=== PATIENT | male | born 1985 | race African-American/Black ===

== ENCOUNTER 2020-01-20 11:56 | Emergency (ER) | payer OTHER, SELFPAY ==
[2020-01-20 12:08] VITALS: PULSE 75; RESP 20; TEMP 36.7; O2SAT 100; BMI 36.9
--- NOTE | 2020-01-20 12:48 | ED_ITS ---
HPI - General Adult General Chief complaint: General Medical Stated complaint: BODY ACHE INJURY Time Seen by Provider: 01/20/20 12:15 Source: patient Mode of arrival: ambulatory History of Present Illness HPI narrative: 34-year-old male deaf male with no significant past medical history complaining of diffuse body myalgias in UE and LE since yesterday s/p caring heavy objects at work. Reports job is very physical. Has been taking Tylenol at home without relief. Reports intermittently works out, however has been more than normal. Denies numbness, tingling, weakness, incontinence / retention, dysuria, dark urine Onset (ago): day(s) Related Data Previous Rx's Medication Instructions Recorded acetaminophen [Tylenol Extra 500 mg PO Q6H PRN #20 tab 01/20/20 Strength] cyclobenzaprine 5 mg PO Q8H PRN 5 Days #14 tab 01/20/20 lidocaine [Lidoderm] 1 patch TOPICAL DAILY PRN #30 ea 01/20/20 MDD remove after 12 hours Allergies Allergy/AdvReac Type Severity Reaction Status Date / Time NSAIDS (Non-Steroidal Allergy Mild HIVES Verified 01/20/20 12:06 Anti-Inflamma [NSAIDS (NON-STEROIDAL ANTI-INFLAMMA] ibuprofen [IBUPROFEN] Allergy Unknown UNKNOWN Verified 01/20/20 12:06 wasps Allergy Anaphylaxis Uncoded 01/20/20 12:07 Review of Systems Review of Systems: Constitutional: No Weight loss, No Fever, No Chills Cardiovascular: No Chest Pain, No SOB Respiratory: No Cough, No Sputum, No Wheezing Gastrointestinal: No Nausea, No Vomiting, No Diarrhea Genitourinary:, No Dysuria, No Hematuria, No Urinary Incontinence Musculoskeletal: + joint pain, + Myalgias, No Joint Swelling Skin: No Skin Lesions, No rash Yes all other systems are reviewed and are negat [facility] Past Medical History Attestation statement: The following information was validated with the patient. Medical History (Updated 01/20/20 @ 15:03 by RAINER Alexander) No known health problems Surgical History (Updated 01/20/20 @ 12:13 by Patito Whitfield) Hx of appendectomy Social History Social History Alcohol intake: current Alcohol intake frequency: a few times a month Smoking Status: Former smoker Use of substances other than those prescribed or required for medical reasons: No Advance Directives: No Advance Directives Information Provided: No Physical Exam Vital Signs: Vital Signs: Vital Signs Temp Pulse Resp Pulse Ox 01/20/20 12:08 98.1 F 75 20 100 Body Mass Index 36.9 Const: General: cooperative and healthy appearing Orientati on/consciousness: patient oriented x3 Limitations: no limitations HENMT: Head: Yes normal to inspection Ears: hearing grossly normal bilaterally General nose exam: Normal external nose present Face and sinus: Yes normal facial exam Eyes: General: appearance normal, both eyes and all related structures EOM: EOMs intact bilaterally Neck: Neck: Yes normal visual inspection Resp: Effort & Inspection: normal respiratory effort Cardio: Rate: regular rate GI: Inspection: Yes normal to inspection Palpation (GI): Soft to palpation, nontender, no guarding and not rigid Skin: Rashes: no rashes Wounds: no wounds Neuro: General: patient oriented x3 Gait exam (Neuro): Normal gait present Extrem: Other: Diffuse joint tenderness to palpation. No midline spinous tenderness. strength intact throughout. NV intact. No saddle anesthesia. Ambulating with steady gait General: Yes normal to inspection Course Course Course Narrative: - labs unremarkable, CPK WNL - UA with 2+ blood, otherwise unremarkable - plan to DC patient home with Flexeril, Lidoderm patches, Tylenol and PCP follow-up Medical Decision Making [facility] Narrative Medical decision making narrative: On exam VSS, NAD /well appearing, patient appears uncomfortable. No red flag symptoms, diffuse joint TTP. Concern for possible rhabdomyolysis vs MSK pain. Lab Data Result diagrams: 01/20/20 13:57 01/20/20 13:56 Labs: Lab Results 01/20/20 01/20/20 01/20/20 Range/Units 13:56 13:56 13:57 WBC (4.8-10.8) X10*3/uL RBC (4.60-5.80) X10*6/uL Hgb (14.0-18.0) g/dl Hct (42-52) % MCV (80-98) fL MCH (27.0-33.0) pg MCHC (31.0-36.0) g/dl RDW (11.0-16.0) % Plt Count (160-400) X10*3/uL MPV (9.4-12.4) fL Immature Gran % (Auto) (0.0-0.4) % Neut % (Auto) (45-73) % Lymph % (Auto) (20-40) % [place] % (Auto) (2-11) % Eos % (Auto) (0-4) % Baso % (Auto) (0-2) % Lymph # (Auto) (1.2-4.9) X10*3/uL [place] # (Auto) (0.1-1.2) X10*3/uL Eos # (Auto) (0.0-0.4) X10*3/uL Baso # (Auto) (0.0-0.2) X10*3/uL Abs Immat Gran (auto) (0.00-0.03) X10*3/uL Absolute Neuts (auto) (2.0-8.3) X10*3/uL Absolute Nucleated RBC (0.0-0.012) X10*3/uL Nucleated RBC % (auto) (0.0-0.2) /100WBC Sodium 139 (135-145) mmol/L Potassium 3.9 (3.3-5.1) mmol/l Chloride 105 (96-108) mmol/L Carbon Dioxide 27 (22-29) mmol/L Anion Gap 11 L (12-20) BUN 13 (9-16) mg/dL Creatinine 1.03 (0.5-1.4) mg/dL Estim Creat Clear Calc 123.1 Estimated GFR > 60 Random Glucose 92 (60-115) mg/dL Calcium 9.2 (8.4-10.2) mg/dL Total Bilirubin 0.5 (0.0-1.0) mg/dL Direct Bilirubin < 0.2 (0.0-0.5) mg/dL AST 17 (5-37) U/L ALT 22 (0-40) U/L Alkaline Phosphatase 75 (39-117) U/L Total Creatine Kinase 117 (38-174) U/L Total Protein 6.8 (6.5-8.0) g/dL Albumin 4.1 (3.5-5.0) g/dL Urine Color YELLOW Urine Appearance CLEAR Urine pH 6.0 (5.0-8.0) Ur Specific [place] 1.020 (1.005-1.025) Urine Protein NEG (NEG-TRACE) MG/DL Urine Glucose (UA) NEG (NEG) MG/DL Urine Ketones NEG (NEG) MG/DL Urine Blood 2+ H (NEG) Urine Nitrite NEG (NEG) Ur Leukocyte Esterase NEG (NEG) Urine RBC 1-4 (0) /HPF Urine WBC 0 (0-4) /HPF Ur Squamous Epith Cells TRACE /LPF Urine Bacteria NONE /LPF 01/20/20 Range/Units 13:57 WBC 7.5 (4.8-10.8) X10*3/uL RBC 4.45 L (4.60-5.80) X10*6/uL Hgb 13.3 L (14.0-18.0) g/dl Hct 38.9 L (42-52) % MCV 87.4 (80-98) fL MCH 29.9 (27.0-33.0) pg MCHC 34.2 (31.0-36.0) g/dl RDW 12.9 (11.0-16.0) % Plt Count 271 (160-400) X10*3/uL MPV 9.3 L (9.4-12.4) fL Immature Gran % (Auto) 0.7 H (0.0-0.4) % Neut % (Auto) 64.0 (45-73) % Lymph % (Auto) 25.1 (20-40) % [place] % (Auto) 8.3 (2-11) % Eos % (Auto) 1.5 (0-4) % Baso % (Auto) 0.4 (0-2) % Lymph # (Auto) 1.9 (1.2-4.9) X10*3/uL [place] # (Auto) 0.6 (0.1-1.2) X10*3/uL Eos # (Auto) 0.1 (0.0-0.4) X10*3/uL Baso # (Auto) 0.0 (0.0-0.2) X10*3/uL Abs Immat Gran (auto) 0.05 H (0.00-0.03) X10*3/uL Absolute Neuts (auto) 4.8 (2.0-8.3) X10*3/uL Absolute Nucleated RBC 0.000 (0.0-0.012) X10*3/uL Nucleated RBC % (auto) 0.0 (0.0-0.2) /100WBC Sodium (135-145) mmol/L Potassium (3.3-5.1) mmol/l Chloride (96-108) mmol/L Carbon Dioxide (22-29) mmol/L Anion Gap (12-20) BUN (9-16) mg/dL Creatinine (0.5-1.4) mg/dL Estim Creat Clear Calc Estimated GFR Random Glucose (60-115) mg/dL Calcium (8.4-10.2) mg/dL Total Bilirubin (0.0-1.0) mg/dL Direct Bilirubin (0.0-0.5) mg/dL AST (5-37) U/L ALT (0-40) U/L Alkaline Phosphatase (39-117) U/L Total Creatine Kinase (38-174) U/L Total Protein (6.5-8.0) g/dL Albumin (3.5-5.0) g/dL Urine Color Urine Appearance Urine pH (5.0-8.0) Ur Specific [place] (1.005-1.025) Urine Protein (NEG-TRACE) MG/DL Urine Glucose (UA) (NEG) MG/DL Urine Ketones (NEG) MG/DL Urine Blood (NEG) Urine Nitrite (NEG) Ur Leukocyte Esterase (NEG) Urine RBC (0) /HPF Urine WBC (0-4) /HPF Ur Squamous Epith Cells /LPF Urine Bacteria /LPF Discharge Plan Discharge Clinical Impression: Myalgia Patient Disposition: Home, Self-Care Instructions: Musculoskeletal Pain (ED) Additional Instructions: your blood work and urine were unremarkable today in the ED You are experiencing musculoskeletal pain Flexeril as a muscle relaxer, take at night makes you drowsy In addition take Tylenol Lidoderm patches or numbing patches to apply to painful area Makes you stay hydrated at home Rest new Apply heat, go in a hot tub if you have access Follow up with her doctor Prescriptions: New acetaminophen [Tylenol Extra Strength] 500 mg tablet 500 mg PO Q6H PRN (Reason: pain or fever) Qty: 20 RF: 0 lidocaine [Lidoderm] 5 % adhesive patch,medicated 1 patch topical DAILY MDD remove after 12 hours PRN (Reason: pain) Qty: 30 RF: 0 cyclobenzaprine 5 mg tablet 5 mg PO Q8H PRN (Reason: pain (scale score 7-10)) 5 Days Qty: 14 RF: 0 Referrals: Physician,Unknown [Primary Care Provider] - 2 days Stand Alone Forms: Work/School Release
[2020-01-20] MEDS: Cyclobenzaprine HCl 5 MG TABLET PO (13:03)
[2020-01-20] MEDS: 0.9 % Sodium Chloride 1,000 ML 999 ML IVCONT (13:28)
[2020-01-20 14:01] LABS: MANUAL DIFF FLAG NO
[2020-01-20 14:07] LABS: Basophils Percent Auto 0.4 % (0-2); Eosinophils Absolute Auto 0.1 X10*3/uL (0.0-0.4); Eosinophils Percent Auto 1.5 % (0-4); Glucose Urine UA NEG (NEG); Hematocrit 38.9 % (42-52); Hemoglobin 13.3 g/dl (14.0-18.0); Imm Gran Abs Auto 0.05 X10*3/uL (0.00-0.03); Imm Gran Pct Auto 0.7 % (0.0-0.4); Leukocyte Esterase Urine NEG (NEG); Lymphocytes Absolute Auto 1.9 X10*3/uL (1.2-4.9); Lymphocytes Percent Auto 25.1 % (20-40); Mean Corpuscular HGB Conc 34.2 g/dl (31.0-36.0); Mean Corpuscular Hemoglobin 29.9 pg (27.0-33.0); Mean Corpuscular Volume 87.4 fL (80-98); Mean Platelet Volume 9.3 fL (9.4-12.4); Monocytes Absolute Auto 0.6 X10*3/uL (0.1-1.2); Monocytes Percent Auto 8.3 % (2-11); Neutrophils Absolute Auto 4.8 X10*3/uL (2.0-8.3); Nitrite Urine NEG (NEG); Platelet Count 271 X10*3/uL (160-400); Red Blood Count 4.45 X10*6/uL (4.60-5.80); Red Cell Distribution Width 12.9 % (11.0-16.0); Urine Blood 2+ (NEG); Urine Ketones NEG (NEG); Urine Protein NEG (NEG-TRACE); White Blood Count 7.5 X10*3/uL (4.8-10.8)
[2020-01-20 14:25] LABS: Alanine Aminotransferase 22 U/L (0-40); Albumin Level 4.1 g/dL (3.5-5.0); Alkaline Phosphatase 75 U/L (39-117); Anion Gap 11 (12-20); Aspartate Amino Transferase 17 U/L (5-37); Bilirubin Direct < 0.2 mg/dL (0.0-0.5); Bilirubin Total 0.5 mg/dL (0.0-1.0); Blood Urea Nitrogen 13 mg/dL (9-16); Calcium 9.2 mg/dL (8.4-10.2); Carbon Dioxide 27 mmol/L (22-29); Chloride 105 mmol/L (96-108); Creatinine Clr Calc Pharmacy 123.1; Estimated Glomerular Filt Rate > 60; Glucose Random 92 mg/dL (60-115); Potassium 3.9 mmol/l (3.3-5.1); Sodium 139 mmol/L (135-145); Total Protein 6.8 g/dL (6.5-8.0)
[2020-01-20 14:32] LABS: Appearance Urine CLEAR; Color Urine YELLOW
[2020-01-20 14:45] LABS: Squamous Epithelial Cell Urine TRACE /LPF; WBC Urine 0 /HPF (0-4)
[2020-01-20] MEDS: oxyCODONE HCl Immed Release 5 MG TABLET PO (14:52)
[2020-01-20 15:17] VITALS: BP 159/98; PULSE 68; RESP 17; O2SAT 98
== END 2020-01-20 15:27 | disposition home or self-care (01) ==
PROVIDERS: Physician Assistant; Emergency Provider Emergency Medicine
DX: M79.10 Myalgia, unspecified site (principal)
CPT/HCPCS: 36415; 80048; 80076; 81001; 82550; 85025; 96360; 99284

== ENCOUNTER 2020-01-21 10:20 | Emergency (ER) | payer OTHER, SELFPAY ==
--- NOTE | 2020-01-21 10:39 | ED_ITS ---
HPI - General Adult General Chief complaint: Weakness Stated complaint: bodyaches Time Seen by Provider: 01/21/20 10:38 Source: patient and diplomatic interpreter/translator Mode of arrival: ambulatory Limitations: language barrier History of Present Illness MD complaint: 3 years of muscle pain and body pain states it is worse and he cannot sleep Onset (ago): year(s) (3) Location: upper extremity and lower extremity Radiation: non-radiation Severity: moderate Quality: aching Pain Consistency: constant Relieving factors: none Exacerbating factors: none Associated symptoms: denies other symptoms Treatments prior to arrival: other (Rx flexeril and lidocaine patches yesterday) Related Data Previous Rx's Medication Instructions Recorded acetaminophen [Tylenol Extra 500 mg PO Q6H PRN #20 tab 01/20/20 Strength] cyclobenzaprine 5 mg PO Q8H PRN 5 Days #14 tab 01/20/20 lidocaine [Lidoderm] 1 patch TOPICAL DAILY PRN #30 ea 01/20/20 MDD remove after 12 hours diazepam [Valium] 5 mg PO BID PRN #10 tab 01/21/20 Allergies Allergy/AdvReac Type Severity Reaction Status Date / Time NSAIDS (Non-Steroidal Allergy Mild HIVES Verified 01/20/20 12:06 Anti-Inflamma [NSAIDS (NON-STEROIDAL ANTI-INFLAMMA] ibuprofen [IBUPROFEN] Allergy Unknown UNKNOWN Verified 01/20/20 12:06 wasps Allergy Anaphylaxis Uncoded 01/20/20 12:07 Review of Systems Review of Systems: Constitutional : No Fever, No Chills ENT/Mouth : No Ear Pain, No Hoarseness, No sore throat Eyes: No Eye Pain, No Swelling, No Redness, No Foreign Body Cardiovascular : No Chest Pain, No SOB Respiratory : No Cough, No Dyspnea Gastrointestinal : No Nausea, No Vomiting, No Diarrhea, No abdominal Pain Genitourinary : No Dysuria, No Hematuria Musculoskeletal : positive joint pain, positive Myalgias, No Joint Swelling Skin : No Skin lacerations, No rash Neuro : No Weakness, No Numbness, No Loss of Consciousness, No Dizziness, No Headache, states he cannot sleep Psych : No Anxiety/Panic, No Depression Heme/Lymph: no easy bruising, no Lymphadenopathy Endocrine : No Polyuria, No Polydipsia All other systems reviewed and are negative PMFSH Past Medical History Attestation statement: The following information was validated with the patient. Medical History No known health problems Surgical History Hx of appendectomy Social History Social History Alcohol intake: current Alcohol intake frequency: a few times a month Smoking Status: Current some day smoker Use of substances other than those prescribed or required for medical reasons: No Advance Directives: No Advance Directives Information Provided: No Physical Exam Vital Signs: Vital Signs: Vital Signs Temp Pulse Resp BP Pulse Ox 01/21/20 10:40 98.7 F 67 18 156/95 H 99 Body Mass Index 36.9 Appearance: Alert. Oriented X3. No acute distress. Eyes: Pupils equal, round and reactive to light. ENT: Pharynx normal. Neck: Normal inspection. Neck supple. CVS: Normal heart rate and rhythm. Pulses normal. Respiratory: No respiratory distress. Breath sounds normal. Abdomen: Soft and nontender. Skin: Skin warm and dry. Normal skin color. Normal skin turgor. Extremities: No lower extremity edema. No calf ttp Neuro: Oriented X 3. No motor deficit. No sensory deficit. Course Reevaluation(s) Reevaluation #1: no acute findings stable for DC, magnesium and CPK normal Medical Decision Making MDM Narrative Medical decision making narrative: just seen yesterday for same had normal labs, c/o diffuse body aches will obtain repeat CPK, COVID test, magnesium start on valium, dispo per results and finding, exam underwhelming at this time, lyme test to be ordered, discussed importance of follow up with PCP Lab Data Labs: Lab Results 01/21/20 Range/Units 11:33 Magnesium 2.1 (1.6-2.6) mg/dL Total Creatine Kinase 98 (38-174) U/L Discharge Plan Discharge Clinical Impression: Myalgia Patient Disposition: Home, Self-Care Instructions: Musculoskeletal Pain (ED) Additional Instructions: a lyme test is pending if positive we will call you in the next week Prescriptions: New diazepam [Valium] 5 mg tablet 5 mg PO BID PRN (Reason: muscle spasm) Qty: 10 RF: 0 No Action acetaminophen [Tylenol Extra Strength] 500 mg tablet 500 mg PO Q6H PRN (Reason: pain or fever) Qty: 20 RF: 0 lidocaine [Lidoderm] 5 % adhesive patch,medicated 1 patch topical DAILY MDD remove after 12 hours PRN (Reason: pain) Qty: 30 RF: 0 cyclobenzaprine 5 mg tablet 5 mg PO Q8H PRN (Reason: pain (scale score 7-10)) 5 Days Qty: 14 RF: 0 Referrals: Lucia Charles [Emergency Nurse] - 2 days Stand Alone Forms: Work/School Release
[2020-01-21 10:40] VITALS: BP 156/95; PULSE 67; RESP 18; TEMP 37.1; O2SAT 99; BMI 36.9
[2020-01-21] MEDS: diazePAM 5 MG TABLET PO (11:13)
[2020-01-21 12:44] LABS: Magnesium 2.1 mg/dL (1.6-2.6)
[2020-01-22 22:31] LABS: Lyme Abs Screen <0.90 index
== END 2020-01-21 13:22 | disposition home or self-care (01) ==
PROVIDERS: Emergency Provider Emergency Medicine
DX: M79.10 Myalgia, unspecified site (principal); Z20.828 Contact with and (suspected) exposure to other viral communicable diseases; F17.200 Nicotine dependence, unspecified, uncomplicated
CPT/HCPCS: 82550; 83735; 86618; 87635; 99283; 99284

== ENCOUNTER 2020-03-07 13:23 | Emergency (ER) | payer OTHER, SELFPAY ==
[2020-03-07 13:53] VITALS: BP 135/90; PULSE 87; RESP 18; TEMP 36.6; O2SAT 96; BMI 38.4
--- NOTE | 2020-03-07 14:12 | ED.GENADULT ---
HPI - General Adult General Chief complaint: General Medical Stated complaint: ankle rash Time Seen by Provider: 03/07/20 14:12 Source: patient Mode of arrival: ambulatory Limitations: no limitations History of Present Illness HPI narrative: 34 yo male with history of atrial fibrillation, anxiety, hearing loss, eczema presenting with itchy rash on his left lower leg. He has been scratching it to the point of causing bleeding. He denies known exposure to irritant. Has history of eczema but has not had issues with it in a very long time. MD complaint: itchy rash Related Data Previous Rx's Medication Instructions Recorded acetaminophen [Tylenol Extra 500 mg PO Q6H PRN #20 tab 01/20/20 Strength] cyclobenzaprine 5 mg PO Q8H PRN 5 Days #14 tab 01/20/20 lidocaine [Lidoderm] 1 patch TOPICAL DAILY PRN #30 ea 01/20/20 MDD remove after 12 hours diazepam [Valium] 5 mg PO BID PRN #10 tab 01/21/20 hydrocortisone 1 appl TOPICAL TID #30 g 03/07/20 Allergies Allergy/AdvReac Type Severity Reaction Status Date / Time NSAIDS (Non-Steroidal Allergy Mild HIVES Verified 03/07/20 13:56 Anti-Inflamma [NSAIDS (NON-STEROIDAL ANTI-INFLAMMA] ibuprofen [IBUPROFEN] Allergy Unknown UNKNOWN Verified 03/07/20 13:56 wasps Allergy Anaphylaxis Uncoded 01/20/20 12:07 Review of Systems Review of Systems: Constitutional: No Fever, No Chills Cardiovascular: No Chest Pain, No SOB Respiratory: No Cough, No Sputum, No Wheezing, No dyspnea Gastrointestinal: No Nausea, No Vomiting, No Diarrhea, No abdominal Pain Musculoskeletal: No joint pain, No Myalgias Skin: No Skin Lesions, + rash Neuro: No Weakness, No Numbness, No Dizziness, No Headache PMFSH Past Medical History Attestation statement: The following information was validated with the patient. Medical History (Updated 03/07/20 @ 14:18 by RAINER Hurley) Afib Cellulitis Fall Hearing loss No known health problems Surgical History Hx of appendectomy Social History Social History Alcohol intake: current Alcohol intake frequency: a few times a month Smoking Status: Current some day smoker Advance Directives: No Advance Directives Information Provided: No Physical Exam Vital Signs: Vital Signs: Last Vital Signs Temp 97.9 F 03/07/20 13:53 Pulse 87 03/07/20 13:53 Resp 18 03/07/20 13:53 BP 135/90 H 03/07/20 13:53 Pulse Ox 96 03/07/20 13:53 Body Mass Index 38.4 Appearance: Alert. Oriented X3. No acute distress. HEENT: normal inspection CVS: Normal heart rate and rhythm. Pulses normal. Respiratory: No respiratory distress. Skin: Skin warm and dry. Left lower leg with large dry, flakey patch of skin on the inner aspect above the ankle as well as small area on the lateral aspect. excoriated. no erythema, warmth, pustules, or drainage. Extremities: no LE edema Neuro: Oriented X 3. No motor deficit. No sensory deficit. Course Course Course Narrative: 34 y/o here with eczema of left leg. Has not been using any topical agents. No signs of superinfection. Will treat with topical hydrocortisone. Stable for discharge. Discharge Plan Discharge Clinical Impression: Eczema Qualifiers: Eczema type: other Qualified Code(s): L30.8 - Other specified dermatitis Patient Disposition: Home, Self-Care Instructions: Eczema (ED) Additional Instructions: Use prescribed antiitch cream 3 times per day until resolved. You can take Benadryl as needed for itching. Avoid taking very hot showers. Keep your skin moisturized with a hypoallergic lotion like CeraVe or Eucerin. Prescriptions: New hydrocortisone 2.5 % cream 1 appl topical TID Qty: 30 RF: 0 No Action acetaminophen [Tylenol Extra Strength] 500 mg tablet 500 mg PO Q6H PRN (Reason: pain or fever) Qty: 20 RF: 0 lidocaine [Lidoderm] 5 % adhesive patch,medicated 1 patch topical DAILY MDD remove after 12 hours PRN (Reason: pain) Qty: 30 RF: 0 cyclobenzaprine 5 mg tablet 5 mg PO Q8H PRN (Reason: pain (scale score 7-10)) 5 Days Qty: 14 RF: 0 diazepam [Valium] 5 mg tablet 5 mg PO BID PRN (Reason: muscle spasm) Qty: 10 RF: 0 Discharge Date/Time: 03/07/20 14:20
== END 2020-03-07 14:20 | disposition home or self-care (01) ==
PROVIDERS: Emergency Provider Internal Medicine
DX: L30.8 Other specified dermatitis (principal); I48.91 Unspecified atrial fibrillation; F17.200 Nicotine dependence, unspecified, uncomplicated; Z71.6 Tobacco abuse counseling; Z79.899 Other long term (current) drug therapy
CPT/HCPCS: 99283

== ENCOUNTER 2020-03-24 09:49 | Emergency (ER) | payer OTHER, SELFPAY ==
[2020-03-24 10:02] VITALS: BP 114/68; PULSE 78; RESP 18; TEMP 35.4; O2SAT 98; BMI 38.4
--- NOTE | 2020-03-24 10:30 | XR_ITS ---
EXAMINATION: XR KNEE, RIGHT CLINICAL INFORMATION: No trauma. Pain and swelling. COMPARISON: None TECHNIQUE: Four views of the right knee. FINDINGS: The tricompartment joint space is maintained. There is minimal suprapatellar joint effusion. No fracture, loose bodies or bony erosive changes seen. XR/XR knee RT 4V IMPRESSION: Nonspecific minimal suprapatellar joint effusion. Otherwise unremarkable right knee exam. No acute fracture or dislocation.
--- NOTE | 2020-03-24 10:33 | ED.EXTPRO ---
HPI - Extremity Problem General Chief complaint: Extremity Problem <Digna Osorio NP - Last Filed: 03/24/20 11:53> Stated complaint: knee injury <Digna Osorio NP - Last Filed: 03/24/20 11:53> Time Seen by Provider: 03/24/20 10:09 <Digna Osorio NP - Last Filed: 03/24/20 11:53> Source: patient <Digna Osorio NP - Last Filed: 03/24/20 11:53> Mode of arrival: ambulatory <Digna Osorio NP - Last Filed: 03/24/20 11:53> Limitations: no limitations <Digna Osorio NP - Last Filed: 03/24/20 11:53> History of Present Illness HPI Narrative: 34 yo male with hearing impairment here with right knee pain and swelling since yesterday. Patient tells me he was on his feet all day for work and his knee started hurting him during this. Increased pain since then. No trauma or injury. No rednes, fevers, chills or warmth. Knee feels unstable, clicking, locking. <Digna Osorio NP - Last Filed: 03/24/20 11:53> MD Complaint: extremity pain and extremity swelling <Digna Osorio NP - Last Filed: 03/24/20 11:53> Onset (ago): day(s) <EDDIE Magallon Last Filed: 03/24/20 11:53> Pain Consistency: intermittent <EDDIE Magallon Last Filed: 03/24/20 11:53> Location: right <EDDIE Magallon Last Filed: 03/24/20 11:53> Quality: aching and constant <Digna Osorio NP - Last Filed: 03/24/20 11:53> Radiation: none <Digna Osorio NP - Last Filed: 03/24/20 11:53> Relieving factors: immobilization <EDDIE Magallon Last Filed: 03/24/20 11:53> Exacerbating factors: nothing, weight bearing and walking <Digan Osorio NP - Last Filed: 03/24/20 11:53> Associated symptoms: denies other symptoms <Digna Osorio NP - Last Filed: 03/24/20 11:53> Related Data Home medications: Previous Rx's Medication Instructions Recorded acetaminophen [Tylenol Extra 500 mg PO Q6H PRN #20 tab 01/20/20 Strength] cyclobenzaprine 5 mg PO Q8H PRN 5 Days #14 tab 01/20/20 lidocaine [Lidoderm] 1 patch TOPICAL DAILY PRN #30 ea 01/20/20 MDD remove after 12 hours diazepam [Valium] 5 mg PO BID PRN #10 tab 01/21/20 hydrocortisone 1 appl TOPICAL TID #30 g 03/07/20 hydrocodone-acetaminophen 1 tab PO Q6H PRN #10 tab 03/24/20 <Digna Osorio NP - Last Filed: 03/24/20 11:53> Allergies/Adverse reactions: Allergies Allergy/AdvReac Type Severity Reaction Status Date / Time NSAIDS (Non-Steroidal Allergy Mild HIVES Verified 03/07/20 13:56 Anti-Inflamma [NSAIDS (NON-STEROIDAL ANTI-INFLAMMA] ibuprofen [IBUPROFEN] Allergy Unknown UNKNOWN Verified 03/07/20 13:56 wasps Allergy Anaphylaxis Uncoded 01/20/20 12:07 <Digna Osorio NP - Last Filed: 03/24/20 11:53> Review of Systems Review of Systems: Yes all other systems are reviewed and are negative <EDDIE Magallon Last Filed: 03/24/20 11:53> Constitutional: Constitutional: Reports no additional constitutional complaints, Denies body ache(s), Denies chills, Denies fever(s), Denies headache(s) and Denies weakness <EDDIE Magallon Last Filed: 03/24/20 11:53> Eyes: Eyes: Reports no additional eye complaints and Denies change in vision <EDDIE Magallon Last Filed: 03/24/20 11:53> ENT: Reports system reviewed and no additional complaints, except as documented, Denies dizziness, Denies headache(s), Denies nasal congestion, Denies nasal discharge and Denies neck pain <Digna Osorio NP - Last Filed: 03/24/20 11:53> Cardiovascular: Cardiovascular: Reports no additional cardiovascular complaints, Denies chest pain, Denies leg edema and Denies dyspnea <Digna Osorio NP - Last Filed: 03/24/20 11:53> Respiratory: Respiratory: Reports no additional respiratory complaints, Denies cough and Denies dyspnea <Digna Osorio NP - Last Filed: 03/24/20 11:53> Gastrointestinal: Gastrointestinal: Reports no additional gastrointestinal complaints, Denies abdominal pain, Denies diarrhea, Denies nausea and Denies vomiting <Digna Osorio NP - Last Filed: 03/24/20 11:53> Genitourinary: Genitourinary: Denies urinary incontinence <Digna Osorio NP - Last Filed: 03/24/20 11:53> Musculoskeletal: Musculoskeletal: Reports no additional musculoskeletal complaints, Denies back pain, Reports arthralgias, Reports joint swelling, Denies neck pain, Denies numbness and Denies tingling <Digna Osorio NP - Last Filed: 03/24/20 11:53> Integumentary/Breasts: Skin/Breast: Reports system reviewed and no additional complaints, except as docu and Denies rash <Digna Osorio NP - Last Filed: 03/24/20 11:53> Neurologic: Reports system reviewed and no additional complaints, except as documented, Denies Abnormal speech present, Denies dizziness, Denies headache(s), Denies numbness, Denies tingling and Denies weakness <Digna Osorio NP - Last Filed: 03/24/20 11:53> PMFSH Past Medical History Attestation statement: The following information was validated with the patient. <Digna Osorio NP - Last Filed: 03/24/20 11:53> Source: old records reviewed and nursing notes reviewed <Digna Osorio NP - Last Filed: 03/24/20 11:53> Medical History: Medical History Afib Cellulitis Fall Hearing loss No known health problems <Digna Osorio NP - Last Filed: 03/24/20 11:53> Surgical History: Surgical History Hx of appendectomy <Digna Osorio NP - Last Filed: 03/24/20 11:53> Social History Social History: Social History Alcohol intake: current Alcohol intake frequency: a few times a month Smoking Status: Current some day smoker Advance Directives: No Advance Directives Information Provided: No <Digna Osorio NP - Last Filed: 03/24/20 11:53> Physical Exam Vital Signs: Vital Signs: Last Vital Signs Temp 95.7 F L 03/24/20 10:02 Pulse 78 03/24/20 10:02 Resp 18 03/24/20 10:02 BP 114/68 03/24/20 10:02 Pulse Ox 98 03/24/20 10:02 Body Mass Index 38.4 <Digna Osorio NP - Last Filed: 03/24/20 11:53> Vital Signs: Last Vital Signs Temp 95.7 F L 03/24/20 10:02 Pulse 78 03/24/20 10:02 Resp 18 03/24/20 10:02 BP 114/68 03/24/20 10:02 Pulse Ox 98 03/24/20 10:02 Body Mass Index 38.4 <Zan Malin MD - Last Filed: 04/03/20 16:56> Const: General: cooperative, healthy appearing, comfortable and no acute distress <Digna Osorio NP - Last Filed: 03/24/20 11:53> Orientation/consciousness: patient oriented x3 <Digna Osorio NP - Last Filed: 03/24/20 11:53> Limitations: no limitations <Digna Osorio NP - Last Filed: 03/24/20 11:53> HENMT: Head: Yes normal to inspection <Digna Osorio NP - Last Filed: 03/24/20 11:53> Ears: hearing grossly normal bilaterally <Digna Osorio TECHNICAL PROGRAM MANAGER - Last Filed: 03/24/20 11:53> General nose exam: Normal external nose present <Digna Osorio NP - Last Filed: 03/24/20 11:53> Face and sinus: Yes normal facial exam <Digna Osorio TECHNICAL PROGRAM MANAGER - Last Filed: 03/24/20 11:53> Mouth: Normal oral and palatal mucosa present <Digna Osorio TECHNICAL PROGRAM MANAGER - Last Filed: 03/24/20 11:53> Throat: Yes posterior oropharynx normal <Digna Osorio TECHNICAL PROGRAM MANAGER - Last Filed: 03/24/20 11:53> Eyes: General: appearance normal, both eyes and all related structures <Digna Osorio TECHNICAL PROGRAM MANAGER - Last Filed: 03/24/20 11:53> Pupils: Equal, round and reactive pupils present <Digna Osorio TECHNICAL PROGRAM MANAGER - Last Filed: 03/24/20 11:53> Neck: Neck: Yes normal visual inspection <Digna Osorio TECHNICAL PROGRAM MANAGER - Last Filed: 03/24/20 11:53> Chest: Chest palpation & inspection: normal inspection of the chest <Digna Osorio TECHNICAL PROGRAM MANAGER - Last Filed: 03/24/20 11:53> Resp: Effort & Inspection: normal respiratory effort <Digna Osorio TECHNICAL PROGRAM MANAGER - Last Filed: 03/24/20 11:53> Auscultation: clear to auscultation bilaterally <Digna Osorio TECHNICAL PROGRAM MANAGER - Last Filed: 03/24/20 11:53> Cardio: Rate: regular rate <Digna Osorio TECHNICAL PROGRAM MANAGER - Last Filed: 03/24/20 11:53> Rhythm: regular rhythm <Digna Osorio TECHNICAL PROGRAM MANAGER - Last Filed: 03/24/20 11:53> Peripheral pulses: Peripheral pulses 2+ throughout <Digna Osorio TECHNICAL PROGRAM MANAGER - Last Filed: 03/24/20 11:53> GI: Inspection: Yes normal to inspection <Digna Osorio TECHNICAL PROGRAM MANAGER - Last Filed: 03/24/20 11:53> Palpation (GI): Soft to palpation and nontender <Digna Osorio TECHNICAL PROGRAM MANAGER - Last Filed: 03/24/20 11:53> Auscultation: normal bowel sounds <Digna Osorio NP - Last Filed: 03/24/20 11:53> Back/Spine/Pelvis: Thoracic/Lumbar Spine: thoracic and lumbar spine normal to inspection <Digna Osorio NP - Last Filed: 03/24/20 11:53> Skin: General skin exam: no rashes or lesions noted <Digna Osorio NP - Last Filed: 03/24/20 11:53> Neuro: General: patient oriented x3, no focal motor deficits and normal sensation to monofilament <Digna Osorio NP - Last Filed: 03/24/20 11:53> Cranial nerves: Yes Equal, round and reactive pupils present <Digna Osorio NP - Last Filed: 03/24/20 11:53> Cognition (Neuro): normal cognition <Digna Osorio NP - Last Filed: 03/24/20 11:53> Speech: No Abnormal speech present <Digna Osorio NP - Last Filed: 03/24/20 11:53> Gait exam (Neuro): Normal gait present <Digna Osorio NP - Last Filed: 03/24/20 11:53> Motor exam (neuro): 5/5 motor strength present throughout <Digna Osorio NP - Last Filed: 03/24/20 11:53> Extrem: Other: Swelling and pain to the anterior and medial aspect of the right knee. There is some mild swelling with no obvious joint effusion. There is no erythema or warmth. The patient is able to flex and extend the knee without any difficulty. There is no posterior knee pain. No calf pain or tenderness. <Digna Osorio NP - Last Filed: 03/24/20 11:53> General: Yes normal to inspection <Digna Osorio NP - Last Filed: 03/24/20 11:53> Course Course Course Narrative: Will check imaging, provide analgesia and re-asses. 1145-x-ray shows mild joint effusion. Exam is more consistent with the medial ligament sprain. Effusion likely secondary to trauma. Reviewed findings with the patient. Recommended rice, Jerman wrap, crutches with nonweightbearing. Reviewed follow-up with primary in 5-7 days if no improvement symptoms. Reviewed worrisome signs and symptoms and when to return to the emergency department. Comfortable discharge home. <Digna Osorio NP - Last Filed: 03/24/20 11:53> I have reviewed the chart <Zan Malin MD - Last Filed: 04/03/20 16:56> MDM - Extremity (Nontraumatic) Medical Records Attestation: I reviewed the patient's medical records. <Digna Osorio NP - Last Filed: 03/24/20 11:53> Lab Data Attestation: I reviewed the patient's lab results. <Digna Osorio NP - Last Filed: 03/24/20 11:53> Imaging Data knee xray: Attestation: I personally reviewed and interpreted this imaging study as follows: <Digna Osorio NP - Last Filed: 03/24/20 11:53> Radiologist's impression: [address] [address] XRay Report Signed Patient: Gian LambMR#: [id number] : 1985Acct:[id number] Age/Sex: 34 / MADM Date: 03/24/20 Loc: .ED Attending Dr: Ordering Physician: DIGNA OSORIO NP Date of Service: 03/24/20 Procedure(s): XR knee RT 4V Accession Number(s): [id number] cc: DIGNA OSORIO NP~ EXAMINATION: XR KNEE, RIGHT CLINICAL INFORMATION: No trauma. Pain and swelling. COMPARISON: None TECHNIQUE: Four views of the right knee. FINDINGS: The tricompartment joint space is maintained. There is minimal suprapatellar joint effusion. No fracture, loose bodies or bony erosive changes seen. XR/XR knee RT 4V IMPRESSION: Nonspecific minimal suprapatellar joint effusion. Otherwise unremarkable right knee exam. No acute fracture or dislocation. <Digna Osorio NP - Last Filed: 03/24/20 11:53> Discharge Plan Discharge Clinical Impression: Sprain of knee <Digna Osorio NP - Last Filed: 03/24/20 11:53> Patient Disposition: Home, Self-Care <Digna Osorio NP - Last Filed: 03/24/20 11:53> Instructions: Knee Sprain (ED) <Digna Osorio NP - Last Filed: 03/24/20 11:53> Additional Instructions: Use the compression wrap daily and do non weight bearing with the crutches Ice, elevation Take medication for pain If no better after 5-7 days see PCP <Digna Osorio NP - Last Filed: 03/24/20 11:53> Prescriptions: New hydrocodone-acetaminophen 5-300 mg tablet 1 tab PO Q6H PRN (Reason: pain) Qty: 10 RF: 0 No Action acetaminophen [Tylenol Extra Strength] 500 mg tablet 500 mg PO Q6H PRN (Reason: pain or fever) Qty: 20 RF: 0 lidocaine [Lidoderm] 5 % adhesive patch,medicated 1 patch topical DAILY MDD remove after 12 hours PRN (Reason: pain) Qty: 30 RF: 0 cyclobenzaprine 5 mg tablet 5 mg PO Q8H PRN (Reason: pain (scale score 7-10)) 5 Days Qty: 14 RF: 0 diazepam [Valium] 5 mg tablet 5 mg PO BID PRN (Reason: muscle spasm) Qty: 10 RF: 0 hydrocortisone 2.5 % cream 1 appl topical TID Qty: 30 RF: 0 <Digna Osorio NP - Last Filed: 03/24/20 11:53> Referrals: Physician,Unknown [Primary Care Provider] - 5 days (if no better) <Digna Osorio NP - Last Filed: 03/24/20 11:53> Interventions: ED Discharge Assessment Last Done: 03/24/20 11:48 <Digna Osorio NP - Last Filed: 03/24/20 11:53> Discharge Date/Time: 03/24/20 11:49 <Digna Osorio NP - Last Filed: 03/24/20 11:53>
[2020-03-24] MEDS: oxyCODONE HCl Immed Release 5 MG TABLET PO (10:43)
[2020-03-24] MEDS: Acetaminophen 325 MG TABLET 650 MG PO (10:44)
[2020-03-24] MEDS: Acetaminophen 325 MG TABLET PO (10:52)
--- NOTE | 2020-03-24 11:47 | PC.NURSE ---
call placed to pts noemi at [phone], message left, pt ambulatory with acewrap/crutches to main wr and will recall
== END 2020-03-24 11:49 | disposition home or self-care (01) ==
PROVIDERS: Emergency Provider Emergency Medicine
DX: S83.411A Sprain of medial collateral ligament of right knee, initial encounter (principal); M25.561 Pain in right knee; S83.91XA Sprain of unspecified site of right knee, initial encounter; X58.XXXA Exposure to other specified factors, initial encounter; Y93.9 Activity, unspecified; Y92.9 Unspecified place or not applicable; Y99.9 Unspecified external cause status; Z79.899 Other long term (current) drug therapy; F17.200 Nicotine dependence, unspecified, uncomplicated; Z71.6 Tobacco abuse counseling
CPT/HCPCS: 73564; 99283

== ENCOUNTER 2020-04-15 23:36 | Emergency (ER) | payer OTHER, SELFPAY ==
[2020-04-16 00:05] VITALS: BP 127/62; PULSE 95; RESP 18; TEMP 36.7; O2SAT 96
== END 2020-04-16 00:42 | disposition left against medical advice (07) ==
PROVIDERS: Emergency Provider Emergency Medicine
DX: R11.2 Nausea with vomiting, unspecified (principal); I48.91 Unspecified atrial fibrillation

== ENCOUNTER 2020-04-25 10:59 | Emergency (ER) | payer OTHER, SELFPAY | END 2020-04-25 15:35 | disposition left against medical advice (07) | PROVIDERS: Emergency Provider Emergency Medicine | DX: M79.642 Pain in left hand (principal) ==

== ENCOUNTER 2020-08-05 16:18 | Emergency (ER) | payer OTHER, SELFPAY ==
[2020-08-05 16:42] VITALS: BP 142/84; BP 169/112; PULSE 115; PULSE 96; RESP 18; TEMP 36.6; O2SAT 98; O2SAT 99; BMI 38.4
--- NOTE | 2020-08-05 17:28 | ED.OVERDOSE ---
HPI - Overdose General Chief Complaint: Overdose Stated Complaint: OVERDOSE,4MG NARCAN Time Seen by Provider: 08/05/20 17:18 Source: patient Limitations: other (martha is hearing impaired) History of Present Illness HPI Narrative: Patient is a 35-year-old male no significant past medical history who, according to EMS, became unresponsive in a parking lot, the [place] [facility] reports they gave him 4 mg of Narcan and became alert and oriented x3. Patient states these are new pills that he has not taken before and he believes that is why he had an issue. He states he feels fine right now. Denies SI or HI. MD complaint: accidental overdose Related Data Previous Rx's Medication Instructions Recorded acetaminophen [Tylenol Extra 500 mg PO Q6H PRN #20 tab 01/20/20 Strength] cyclobenzaprine 5 mg PO Q8H PRN 5 Days #14 tab 01/20/20 lidocaine [Lidoderm] 1 patch TOPICAL DAILY PRN #30 ea 01/20/20 MDD remove after 12 hours diazepam [Valium] 5 mg PO BID PRN #10 tab 01/21/20 hydrocortisone 1 appl TOPICAL TID #30 g 03/07/20 hydrocodone-acetaminophen 1 tab PO Q6H PRN #10 tab 03/24/20 carvedilol 3.125 mg tablet 3.125 mg PO BID 30 Days #60 tab 04/28/20 naloxone [Narcan] 4 mg INTRANASAL Q2M PRN #2 ea 08/05/20 Allergies Allergy/AdvReac Type Severity Reaction Status Date / Time NSAIDS (Non-Steroidal Allergy Mild HIVES Verified 03/07/20 13:56 Anti-Inflamma [NSAIDS (NON-STEROIDAL ANTI-INFLAMMA] ibuprofen [IBUPROFEN] Allergy Unknown UNKNOWN Verified 03/07/20 13:56 wasps Allergy Anaphylaxis Uncoded 01/20/20 12:07 Review of Systems Review of Systems: Yes all other systems are reviewed and are negative PMFSH Past Medical History Medical History Afib Cellulitis Fall Hearing loss No known health problems Surgical History Hx of appendectomy Social History Social History Alcohol intake: current Alcohol intake frequency: a few times a month Smoking Status: Current some day smoker Advance Directives: No Advance Directives Information Provided: Yes Physical Exam Vital Signs: Vital Signs: Last Vital Signs Temp 97.9 F 08/05/20 16:42 Pulse 96 08/05/20 16:42 Resp 18 08/05/20 16:42 BP 169/112 H 08/05/20 16:42 Pulse Ox 99 08/05/20 16:42 Body Mass Index 38.4 Const: General: cooperative, healthy appearing, comfortable and no acute distress Nutritional Appearance: obese Orientation/consciousness: patient oriented x3 HENMT: Head: Yes normal to inspection, Yes normocephalic and Yes atraumatic Eyes: General: appearance normal, both eyes and all related structures Pupils: Equal, round and reactive pupils present EOM: EOMs intact bilaterally Neck: Neck: Yes normal visual inspection, Yes full ROM and Yes supple Resp: Effort & Inspection: normal respiratory effort and able to speak in complete sentences Cardio: Rate: regular rate Neuro: General: patient oriented x3 Cranial nerves: Yes Equal, round and reactive pupils present Extrem: General: Yes normal to inspection, Yes full ROM and Yes no pedal edema Course Course Course Narrative: Patient is a 35-year-old male no significant past medical history who, according to EMS, became unresponsive in a parking lot, the [place] [facility] apartment reports they gave him 4 mg of Narcan and became alert and oriented x3. Will get ETOH and U tox and is long is ETOH is negative, will discharge patient. Will also refer to counselor in ED, as patient has expressed an interest in quitting drugs. Reevaluation(s) Reevaluation #1: Patient is requesting to leave AMA, counselor is speaking with him now and we will get a repeat blood pressure before he leaves. Discharge Plan Discharge Clinical Impression: Drug overdose Qualifiers: Encounter type: initial encounter Injury intent: accidental or unintentional Qualified Code(s): T50.901A - Poisoning by unspecified drugs, medicaments and biological substances, accidental (unintentional), initial encounter Patient Disposition: Left Against Medical Advice Instructions: Narcotic Safety (ED), Adult Overdose (ED), Narcotic Use Disorder (ED) Prescriptions: New Narcan 4 mg/actuation spray,non-aerosol 4 mg intranasal Q2M PRN (Reason: opioid overdose) Qty: 2 RF: 1 No Action carvedilol 3.125 mg tablet 3.125 mg PO BID 30 Days Qty: 60 RF: 0 acetaminophen [Tylenol Extra Strength] 500 mg tablet 500 mg PO Q6H PRN (Reason: pain or fever) Qty: 20 RF: 0 lidocaine [Lidoderm] 5 % adhesive patch,medicated 1 patch topical DAILY MDD remove after 12 hours PRN (Reason: pain) Qty: 30 RF: 0 cyclobenzaprine 5 mg tablet 5 mg PO Q8H PRN (Reason: pain (scale score 7-10)) 5 Days Qty: 14 RF: 0 diazepam [Valium] 5 mg tablet 5 mg PO BID PRN (Reason: muscle spasm) Qty: 10 RF: 0 hydrocortisone 2.5 % cream 1 appl topical TID Qty: 30 RF: 0 hydrocodone-acetaminophen 5-300 mg tablet 1 tab PO Q6H PRN (Reason: pain) Qty: 10 RF: 0
[2020-08-05 17:42] VITALS: BP 119/109
[2020-08-05 17:44] VITALS: BP 196/101; PULSE 101; RESP 16; O2SAT 99
--- NOTE | 2020-08-05 17:45 | PC.NURSE ---
ROMULO SCOTT AWARE OF PATIENT HIGH BLOOD PRESSURE .
[2020-08-05] MEDS: Naloxone HCl Nasal TAKE HOME 4 MG SPRAY NOSTRILALT (17:49)
--- NOTE | 2020-08-05 18:47 | MHC.RECOVSUP ---
Met with Patient before Patient left AMA.. and supplied Patient with resources where he can go at a later time..
== END 2020-08-05 17:54 | disposition left against medical advice (07) ==
PROVIDERS: Emergency Provider Internal Medicine
DX: T50.901A Poisoning by unspecified drugs, medicaments and biological substances, accidental (unintentional), initial encounter (principal); Y92.9 Unspecified place or not applicable; F10.10 Alcohol abuse, uncomplicated; Z79.899 Other long term (current) drug therapy; Z71.41 Alcohol abuse counseling and surveillance of alcoholic
CPT/HCPCS: 99284

== ENCOUNTER 2021-04-05 12:34 | Emergency (ER) | payer OTHER, SELFPAY | END 2021-04-05 19:01 | disposition left against medical advice (07) | PROVIDERS: Emergency Provider Emergency Medicine | DX: R11.10 Vomiting, unspecified (principal) ==

== ENCOUNTER 2023-08-17 20:11 | Emergency (ER) | payer OTHER, SELFPAY ==
[2023-08-17 20:28] VITALS: BP 127/72; PULSE 118; RESP 22; TEMP 36.8; O2SAT 93; BMI 29.7
[2023-08-17 20:30] VITALS: BP 127/72; PULSE 113; RESP 20; TEMP 36.9; O2SAT 92
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
--- NOTE | 2023-08-17 21:21 | ED.GENADULT ---
HPI - General Adult General Chief complaint: General Medical Stated complaint: ?SUBSTANCE ABUSE Time Seen by Provider: 08/17/23 21:01 Source: EMS Mode of arrival: EMS Limitations: other (Deaf mute) History of Present Illness HPI narrative: Patient comes to the emergency room via ambulance. Patient was found wandering throughout [place], trying to break into people car's and trying to get into fights with some teenagers. PD was called, patient was brought to the emergency room. Patient is deaf mute, and box tender was used. Patient did not answer any questions, but we were told by the [facility] emergency medical technician that he was cussing out everyone in the room NSAID that he was going to go to sleep. Otherwise, patient refused to answer any other questions. Related Data Previous Rx's ?Medication ?Instructions ?Recorded acetaminophen 500 mg tablet 500 mg PO Q6H PRN pain or fever 01/20/20 (Tylenol Extra Strength) #20 tabs cyclobenzaprine 5 mg tablet 5 mg PO Q8H PRN pain (scale score 01/20/20 7-10) 5 days #14 tabs lidocaine 5 % topical patch 1 patch topical DAILY PRN pain #30 01/20/20 (Lidoderm) ea diazepam 5 mg tablet (Valium) 5 mg PO BID PRN muscle spasm #10 01/21/20 tabs hydrocortisone 2.5 % topical cream 1 appl topical TID #30 grams 03/07/20 hydrocodone 5 mg-acetaminophen 300 1 tab PO Q6H PRN pain #10 tabs 03/24/20 mg tablet carvedilol 3.125 mg tablet 3.125 mg PO BID 30 days #60 tabs 04/28/20 naloxone 4 mg/actuation nasal 4 mg intranasal Q2M PRN opioid 08/05/20 spray (Narcan) overdose #2 ea Allergies Allergy/AdvReac Type Severity Reaction Status Date / Time NSAIDS (Non-Steroidal Allergy Mild HIVES Verified 03/07/20 13:56 Anti-Inflamma [NSAIDS (NON-STEROIDAL ANTI-INFLAMMA] ibuprofen [IBUPROFEN] Allergy Unknown UNKNOWN Verified 03/07/20 13:56 bee pollen [bee stings] Allergy Anaphylaxis Unverified 08/17/23 20:31 wasps Allergy Anaphylaxis Uncoded 01/20/20 12:07 Review of Systems Review of Systems: Yes Other (Uncooperative) [facility] Past Medical History Medical History Deaf-mutism Fall Cellulitis Hearing loss Afib No known health problems Surgical History Hx of appendectomy Social History Social History Unable to assess alcohol history related to: Refusing to respond Alcohol intake: current Alcohol intake frequency: a few times a month Use of substances other than those prescribed or required for medical reasons: Refusing to respond Advance Directives: No Advance Directives Information Provided: No Physical Exam ED Vital Signs: Vital Signs - 24 hr 08/17/23 20:28 08/17/23 20:30 08/17/23 23:19 Temperature 98.3 F 98.4 F 98.4 F Pulse Rate 118 H 113 H 97 Respiratory Rate 22 H 20 16 Blood Pressure 127/72 127/72 120/73 Pulse Oximetry 93 92 98 Oxygen Delivery Method Room Air Room Air Room Air BMI result Body Mass Index 29.7 Const Other: Appearance: Alert. Uncooperative Eyes: Pupils equal, round and reactive to light. ENT: Pharynx normal. Neck: Normal inspection. Neck supple. No lymph nodes noted. No crepitus CVS: Normal heart rate and rhythm. Pulses normal. Normal S1 and S2 Respiratory: No respiratory distress. Breath sounds normal. No Wheezing. No rales Abdomen: Soft and nontender. No rigidity. No distention. Skin: Skin warm and dry. Normal skin color. Normal skin turgor. Extremities: No lower extremity edema. No Lacerations. No Rash Neuro: Moving all extremities. The mid, uncooperative Psych: Uncooperative Course Course Course Narrative: -of patient's vitals are stable, slightly tachycardic, oxygen saturation 92% on room air. -patient refused to answer any questions, went to sleep. Patient is on the monitor. -reviewing patient's past medical records, patient has had incidents of unintentional overdose for which he had to be Narcan. Medical Decision Making Medical Decision Making MDM Narrative: -[place] emergency medical technician used. Patient is awake, alert and oriented x3. Patient feels well. Patient states that he would like to be discharged home. Discussed with the patient that if he has good steady gait on unassisted he may be discharged. -patient was able to get up by himself, walk with steady gait. -patient denies SI or HI, no need for a section 12. Discharge Plan Discharge Clinical Impression: Alcohol intoxication Patient Disposition: Home, Self-Care Instructions: Abuse of Alcohol (ED) Additional Instructions: Please follow-up with your primary care physician tomorrow. If you have any worsening or new symptoms, please return to the emergency room or call 911 Prescriptions: No Action carvedilol 3.125 mg tablet 3.125 mg PO BID 30 Days Qty: 60 0RF Rx Instructions: must administer with a meal/food Needs cardiology follow up before more refills given acetaminophen [Tylenol Extra Strength] 500 mg tablet 500 mg PO Q6H PRN (Reason: pain or fever) Qty: 20 0RF lidocaine [Lidoderm] 5 % adhesive patch,medicated 1 patch topical DAILY MDD remove after 12 hours PRN (Reason: pain) Qty: 30 0RF Rx Instructions: leave on most painful area for up to 12 hrs cyclobenzaprine 5 mg tablet 5 mg PO Q8H PRN (Reason: pain (scale score 7-10)) 5 Days Qty: 14 0RF diazepam [Valium] 5 mg tablet 5 mg PO BID PRN (Reason: muscle spasm) Qty: 10 0RF hydrocortisone 2.5 % cream 1 appl topical TID Qty: 30 0RF hydrocodone-acetaminophen 5-300 mg tablet 1 tab PO Q6H PRN (Reason: pain) Qty: 10 0RF Narcan 4 mg/actuation spray,non-aerosol 4 mg intranasal Q2M PRN (Reason: opioid overdose) Qty: 2 1RF Rx Instructions: spray 1 dose into ONE nostril; alternate nostrils w each dose until help arrives Print Language: Azeri
[2023-08-17 23:19] VITALS: BP 120/73; PULSE 97; RESP 16; TEMP 36.9; O2SAT 98
[2023-08-18 01:15] VITALS: BP 122/70; PULSE 97; RESP 16; TEMP 36.9; O2SAT 98
== END 2023-08-18 01:15 | disposition home or self-care (01) ==
PROVIDERS: Emergency Provider Emergency Medicine
DX: F10.129 Alcohol abuse with intoxication, unspecified (principal); Y90.9 Presence of alcohol in blood, level not specified; Z79.899 Other long term (current) drug therapy
CPT/HCPCS: 99284

== ENCOUNTER 2023-08-18 04:46 | Emergency (ER) | payer OTHER, SELFPAY ==
[2023-08-18 05:23] VITALS: BP 139/79; PULSE 110; PULSE 95; RESP 17; TEMP 37.2; O2SAT 94; O2SAT 98; BMI 36.9
[2023-08-18 05:46] VITALS: BP 139/79; PULSE 95; RESP 17; TEMP 37.2; O2SAT 94
--- NOTE | 2023-08-18 05:57 | ED.PSYCH ---
HPI - Psych General Chief Complaint: Behavioral Concerns Stated Complaint: attempted self harm Time Seen by Provider: 08/18/23 05:43 Source: EMS Mode of arrival: EMS Limitations: other History of Present Illness HPI Narrative: Patient comes to the emergency room via EMS and PD on board on a Section 12. Patient was discharged from the hospital a few hours ago for alcohol intoxication, patient was sober and has steady gait. According to PD, patient was found banging his head against a brick wall exhibiting erratic behaviors. Patient was Section 12, no visible external injuries. Patient is deaf mute, patient states that he has not SI or HI. Patient is deaf mute, all of the patient's communication has been done through the [employer] setter off. Related Data Home Medications ?Medication ?Instructions ?Recorded ?Confirmed hydroxyzine HCl 25 mg tablet 25 mg PO DAILY 08/18/23 08/18/23 quetiapine 25 mg tablet 25 mg PO BEDTIME 08/18/23 08/18/23 Previous Rx's ?Medication ?Instructions ?Recorded acetaminophen 500 mg tablet 500 mg PO Q6H PRN pain or fever 01/20/20 (Tylenol Extra Strength) #20 tabs cyclobenzaprine 5 mg tablet 5 mg PO Q8H PRN pain (scale score 01/20/20 7-10) 5 days #14 tabs lidocaine 5 % topical patch 1 patch topical DAILY PRN pain #30 01/20/20 (Lidoderm) ea diazepam 5 mg tablet (Valium) 5 mg PO BID PRN muscle spasm #10 01/21/20 tabs hydrocortisone 2.5 % topical cream 1 appl topical TID #30 grams 03/07/20 hydrocodone 5 mg-acetaminophen 300 1 tab PO Q6H PRN pain #10 tabs 15/20 mg tablet carvedilol 3.125 mg tablet 3.125 mg PO BID 30 days #60 tabs 04/28/20 naloxone 4 mg/actuation nasal 4 mg intranasal Q2M PRN opioid 08/05/20 spray (Narcan) overdose #2 ea Allergies Allergy/AdvReac Type Severity Reaction Status Date / Time NSAIDS (Non-Steroidal Allergy Mild HIVES Verified 08/18/23 05:28 Anti-Inflamma [NSAIDS (NON-STEROIDAL ANTI-INFLAMMA] ibuprofen [IBUPROFEN] Allergy Unknown UNKNOWN Verified 08/18/23 05:28 bee pollen [bee stings] Allergy Anaphylaxis Verified 08/18/23 05:28 wasps Allergy Anaphylaxis Uncoded 08/18/23 05:28 Review of Systems Review of Systems: Yes Other [facility] Past Medical History Medical History Deaf-mutism Fall Cellulitis Hearing loss Afib No known health problems Surgical History Hx of appendectomy Social History Social History Unable to assess alcohol history related to: Refusing to respond Alcohol intake: current Alcohol intake frequency: a few times a month Advance Directives: No Advance Directives Information Provided: No Physical Exam Vital Signs: Vital Signs: Last Vital Signs Temp 99.0 F 08/18/23 05:46 Pulse 95 08/18/23 05:46 Resp 17 08/18/23 05:46 BP 139/79 08/18/23 05:46 Pulse Ox 94 08/18/23 05:46 O2 Del Method Room Air 08/18/23 05:46 BMI result Body Mass Index 36.9 Const: Other: Appearance: Alert. No acute distress Eyes: Pupils equal, round and reactive to light. ENT: Pharynx normal. Neck: Normal inspection. Neck supple. No lymph nodes noted. No crepitus CVS: Normal heart rate and rhythm. Pulses normal. Normal S1 and S2 Respiratory: No respiratory distress. Breath sounds normal. No Wheezing. No rales Abdomen: Soft and nontender. No rigidity. No distention. Skin: Skin warm and dry. Normal skin color. Normal skin turgor. Extremities: No lower extremity edema. No Lacerations. No Rash Neuro:Moving all extremities. No slurred speech. CN 2 through 12 grossly intact Psych: Agitated, erratic behavior, taking his clothes off, throwing his clothes throughout the pod, walking naked Course Course Course Narrative: -the 2nd visit, patient exhibiting new behaviors, patient taking his clothes off, dancing and walking around the pod naked, putting his arms up in the air and not taking them back down. -after redirection, patient went back to his room, and stayed in his bed. Patient laying down with his arms up in the air without putting them down. Almost in a partial catatonic state. -patient is agreeable to take p.o. medications. Medical Decision Making Medical Decision Making MDM Narrative: -patient is on a Section 12 -patient was given p.o. medication, diphenhydramine Haldol and lorazepam. -with reassurance, patient calm down. Patient agreeable to take p.o. meds Differential Diagnosis Differential Diagnoses: The differential diagnosis associated with the presentation includes (Alcohol intoxication, polysubstance abuse, psychosis) Admission/Observation Consideration of admission/observation: Escalation of care including admission/observation considered (Patient's behavior is significantly erratic. Patient is on a Section 12, will likely need inpatient bed search.) Discharge Plan Discharge Clinical Impression: Acute psychosis Patient Disposition: Still a Patient Prescriptions: No Action carvedilol 3.125 mg tablet 3.125 mg PO BID 30 Days Qty: 60 0RF Rx Instructions: must administer with a meal/food Needs cardiology follow up before more refills given acetaminophen [Tylenol Extra Strength] 500 mg tablet 500 mg PO Q6H PRN (Reason: pain or fever) Qty: 20 0RF lidocaine [Lidoderm] 5 % adhesive patch,medicated 1 patch topical DAILY MDD remove after 12 hours PRN (Reason: pain) Qty: 30 0RF Rx Instructions: leave on most painful area for up to 12 hrs cyclobenzaprine 5 mg tablet 5 mg PO Q8H PRN (Reason: pain (scale score 7-10)) 5 Days Qty: 14 0RF diazepam [Valium] 5 mg tablet 5 mg PO BID PRN (Reason: muscle spasm) Qty: 10 0RF hydrocortisone 2.5 % cream 1 appl topical TID Qty: 30 0RF hydrocodone-acetaminophen 5-300 mg tablet 1 tab PO Q6H PRN (Reason: pain) Qty: 10 0RF Narcan 4 mg/actuation spray,non-aerosol 4 mg intranasal Q2M PRN (Reason: opioid overdose) Qty: 2 1RF Rx Instructions: spray 1 dose into ONE nostril; alternate nostrils w each dose until help arrives Print Language: Faroese
--- NOTE | 2023-08-18 07:26 | PC.NURSE ---
Assumed care of patient at 0645, patient appears to be sleeping, respirations even and unlabored, no apparent distress noted. Continue plan of care for medical clearance then care eval
--- NOTE | 2023-08-18 07:27 | PC.NURSE ---
Will hold medications until patient is awake
[2023-08-18] MEDS: droPERidol 5 MG/2 ML VIAL 2.5 MG IM (10:30)
[2023-08-18] MEDS: LORazepam 2 MG/ML VIAL IM (10:31)
--- NOTE | 2023-08-18 10:32 | PC.NURSE ---
RE: chemical restraint patient woke up agitated, attempting to exit through the door by security. Patient refusing re-direction. MATALHAI brought to patient, attempted to communicate with patient regarding the situation but patient continually walked away from change person. Patient continued to attempt to leave via the exit, security in pod at this time. IM medications ordered. Patient took medications standing up with a physical hold from security. patient was escorted back to room by security at that time. patient is now up, ambulating around BH pod, occasionally yelling but is more redirectable a this time
--- NOTE | 2023-08-18 10:58 | PC.NURSE ---
Re: chemical restratin (medications) IM Ativan 2mg and IM Droperidol 2.5 mg given at 1025, attempted to edit in JUN however, unable to
--- NOTE | 2023-08-18 12:53 | MHC.CARE ---
Pt has been medicated and CARE Team is awaiting an opportunity to assess pt when pt is better able to participate.? In the meantime, CARE Team attempts to secure collateral information on this pt. 10:35hrs:? CARE Team contacted [facility] to inquire about any prior involvement pt may have had with [facility].? [facility] reports no previous assessments on this pt but he does see Dr. Sam Gutierrez for psychiatry services.? His first appointment was on 07/18 with his next being on 08/29. 10:40hrs:? CARE Team attempts to make contact with with pt?s psychiatrist, Dr. Sam Laughlin ([phone]).? A message requesting a return call was left. 10:45hrs:? CARE Team attempts to make contact with pt?s Emergency Contact, Ms. Radha Lamb.? Ms. Lamb?s number is disconnected. 10:50hrs:? CARE Team contacted [facility] to inquire about any prior involvement pt may have had with [facility].? [facility] reports no previous assessments on this pt. 11:27hrs:? CARE Team contacted [facility] to inquire about any prior involvement pt may have had with [facility].? [facility] reports no previous assessments on this pt.
[2023-08-18 14:00] VITALS: RESP 16
--- NOTE | 2023-08-18 17:06 | PC.NURSE ---
attempted to draw labs, patient refused
[2023-08-18 18:23] VITALS: PULSE 87; RESP 16; O2SAT 97
--- NOTE | 2023-08-18 18:59 | PC.NURSE ---
patient appears to remain asleep at present remains refusing vitals and labs patient appears in no distress.
--- NOTE | 2023-08-19 04:28 | MHC.EDTECH ---
patient refused lab draw and urine sample
[2023-08-19] MEDS: diphenhydrAMINE HCL 50 MG/ML VIAL IM (11:38)
[2023-08-19] MEDS: OLANZapine 10 MG VIAL IM (11:38)
[2023-08-19] MEDS: LORazepam 2 MG/ML VIAL IM (11:38)
--- NOTE | 2023-08-19 11:39 | PC.NURSE ---
Patient has been verbally aggressive walking around banging phone turning on bathroom alarms and started screaming and threatening staff and banging on door to room. MD Thapa notified and Ativan, Benadryl and zyprexa was ordered and given per im order. Security was at bedside and needed to manually restrain patient while meds were administered. Patient is now up and walking around still shouting but is not threatening staff at this time. resp. even, warm blankets offered as well as a snack and drink. Will continue to monitor.
[2023-08-19 12:21] VITALS: BP 142/98; PULSE 98; RESP 18; TEMP 37.1; O2SAT 96
[2023-08-19 12:28] VITALS: BP 130/87; PULSE 97; RESP 16; TEMP 37; O2SAT 98
--- NOTE | 2023-08-19 13:25 | MHC.CARE ---
CARE Team met with pt with psychiatry.
[2023-08-19 13:26] LABS: Basophils Percent Auto 0.4 % (0-2); Eosinophils Percent Auto 0.2 % (0-4); Hematocrit 42.3 % (42.0-52.0); Hemoglobin 14.9 g/dl (14.0-18.0); Imm Gran Abs Auto 0.08 X10*3/uL (0.00-0.03); Imm Gran Pct Auto 0.9 % (0.0-0.4); Lymphocytes Absolute Auto 1.4 X10*3/uL (1.2-4.9); Lymphocytes Percent Auto 15.5 % (20-40); MANUAL DIFF FLAG SCAN; Mean Corpuscular HGB Conc 35.2 g/dl (31.0-36.0); Mean Corpuscular Volume 85.3 fL (80.0-98.0); Mean Platelet Volume 9.6 fL (9.4-12.4); Monocytes Absolute Auto 0.4 X10*3/uL (0.1-1.2); Monocytes Percent Auto 4.4 % (2-11); Neutrophils Absolute Auto 7.2 x10*3/uL (2.0-8.3); Neutrophils Percent Auto 78.6 % (45-73); PLT CLUMP 1; Red Blood Count 4.96 X10*6/uL (4.60-5.80); SCAN SMEAR FLAG 1
[2023-08-19 13:29] LABS: Platelet Count 348 X10*3/uL (160-400); White Blood Count 9.2 X10*3/uL (4.8-10.8)
[2023-08-19 13:42] LABS: Alanine Aminotransferase 46 U/L (0-40); Albumin Level 4.6 g/dL (3.5-5.0); Alkaline Phosphatase 91 U/L (39-117); Anion Gap 16 (12-20); Aspartate Amino Transferase 40 U/L (5-37); Bilirubin Total 0.3 mg/dL (0.0-1.0); Blood Urea Nitrogen 12 mg/dL (9-16); Calcium 10.6 mg/dL (8.4-10.2); Carbon Dioxide 28 mmol/L (22-29); Chloride 99 mmol/L (96-108); Creatinine Clr Calc Pharmacy 133.9; Estimated Glomerular Filt Rate > 60; Ethanol < 10 mg/dL; Glucose Random 131 mg/dL (60-115); Sodium 140 mmol/L (135-145); Total Protein 8.6 g/dL (6.5-8.0)
[2023-08-19 13:43] LABS: SLIDE REVIEW VERIFIED
[2023-08-19] MEDS: Potassium Chloride Packet 20 MEQ PACKET 60 MEQ PO (16:47)
[2023-08-19 18:59] VITALS: BP 148/73; PULSE 100; RESP 18; TEMP 36.6; O2SAT 98
== END 2023-08-19 19:20 | disposition home or self-care (01) ==
PROVIDERS: Emergency Provider Emergency Medicine
DX: F23 Brief psychotic disorder (principal); R45.851 Suicidal ideations; H91.3 Deaf nonspeaking, not elsewhere classified; Z79.899 Other long term (current) drug therapy; Z51.81 Encounter for therapeutic drug level monitoring
CPT/HCPCS: 36415; 80053; 80307; 85025; 96372; 99284; 99285; J1200; J1790; J2060; J2359; S9485

== ENCOUNTER 2023-09-29 02:37 | Emergency (ER) | payer OTHER, SELFPAY ==
--- NOTE | ~2023-09-29 | CT_ITS ---
EXAMINATION: CT ABDOMEN AND PELVIS WITH CONTRAST CLINICAL INFORMATION: 4 quadrant pain COMPARISON: None available. TECHNIQUE: Multidetector volumetric images were obtained from the superior aspect of the liver through the pubic symphysis following administration 85 mL of Omnipaque 350 intravenous contrast. Sagittal and coronal reformatted images were obtained on the technologist's workstation. Oral contrast: No This CT examination was performed using dose optimization techniques as appropriate, variously including the following: *Automated exposure control *Adjustment of mA and/or kV according to patient size (this includes techniques or standardized protocols for targeted exams where dose is matched to indication/reason for exam; i.e. extremities or head) *Use of iterative reconstruction technique DLP: 772 mGy-cm also 790 FINDINGS: Limited from patient motion. Several attempts at imaging are made. LUNG BASES: Motion degrades imaging of the lung bases LIVER, GALLBLADDER, AND BILIARY TREE: Motion limits evaluation. No obvious finding. PANCREAS: Again motion degrades imaging. Cannot exclude some fluid associated with the distal aspect of the pancreas. SPLEEN: Again motion on this study. Nondiagnostic. Significantly limits evaluation. I cannot rule out some fluid around the spleen ADRENAL GLANDS: Within normal limits KIDNEYS AND URETERS: The kidneys are normal in size, shape, and attenuation. No hydronephrosis, hydroureter, or calculi seen. No perinephric stranding. BLADDER: Unremarkable. GASTROINTESTINAL TRACT: Motion degrades imaging. There are surgical clips in the right lower quadrant. The appendix is felt to be intact but does lead up to a high density which may represent a surgical clip or possible appendicolith in the appendix. The appendix does not appear dilated. Probable hiatal hernia. The bowel pattern is nonobstructing. Pancreas is felt to be within normal limits. High density in the region could represent appendicolith or post surgical clip versus foreign body of other etiology. Correlation with patient's clinical history. Some scattered diverticula disease. Again exam is limited from patient motion. ABDOMINAL WALL: No significant hernia is appreciated. LYMPH NODES: Some shotty nodes. No bulky adenopathy is seen. VASCULAR: Unremarkable. PELVIC VISCERA: Unremarkable. OSSEOUS STRUCTURES: Unremarkable. CT/CT abdomen pelvis w IV con IMPRESSION: This exam is limited from patient motion despite multiple attempts to image. Based on the imaging submitted I cannot rule out some soft tissue change in the region of the distal pancreas spleen. Certainly pancreatitis other abnormality cannot be excluded versus inflammatory change of other etiology. As described the bowel pattern is felt to be nonobstructing. There is no free fluid. Fleischner guidelines were followed.
[2023-09-29 02:53] VITALS: BP 135/95; PULSE 87; RESP 16; TEMP 36.8; O2SAT 97; BMI 34.0
[2023-09-29 03:37] LABS: MANUAL DIFF FLAG NO
[2023-09-29 03:45] LABS: Basophils Absolute Auto 0.1 X10*3/uL (0.0-0.2); Basophils Percent Auto 0.5 % (0-2); Eosinophils Percent Auto 0.3 % (0-4); Hematocrit 38.4 % (42.0-52.0); Hemoglobin 13.4 g/dl (14.0-18.0); Imm Gran Abs Auto 0.03 X10*3/uL (0.00-0.03); Imm Gran Pct Auto 0.3 % (0.0-0.4); Lymphocytes Absolute Auto 1.5 X10*3/uL (1.2-4.9); Lymphocytes Percent Auto 16.3 % (20-40); Mean Corpuscular HGB Conc 34.9 g/dl (31.0-36.0); Mean Corpuscular Hemoglobin 30.1 pg (27.0-33.0); Mean Corpuscular Volume 86.3 fL (80.0-98.0); Mean Platelet Volume 8.8 fL (9.4-12.4); Monocytes Absolute Auto 0.8 X10*3/uL (0.1-1.2); Monocytes Percent Auto 8.4 % (2-11); Neutrophils Absolute Auto 6.8 x10*3/uL (2.0-8.3); Neutrophils Percent Auto 74.2 % (45-73); Platelet Count 314 X10*3/uL (160-400); Red Blood Count 4.45 X10*6/uL (4.60-5.80); Red Cell Distribution Width 13.3 % (11.0-16.0); White Blood Count 9.1 X10*3/uL (4.8-10.8)
[2023-09-29 03:54] LABS: Alanine Aminotransferase 17 U/L (0-40); Albumin Level 4.5 g/dL (3.5-5.0); Alkaline Phosphatase 67 U/L (39-117); Anion Gap 11 (12-20); Aspartate Amino Transferase 18 U/L (5-37); Bilirubin Total 0.2 mg/dL (0.0-1.0); Blood Urea Nitrogen 14 mg/dL (9-16); Calcium 10.1 mg/dL (8.4-10.2); Carbon Dioxide 32 mmol/L (22-29); Chloride 103 mmol/L (96-108); Creatinine Clr Calc Pharmacy 134.3; Estimated Glomerular Filt Rate > 60; Glucose Random 79 mg/dL (60-115); Potassium 3.7 mmol/L (3.3-5.1); Sodium 142 mmol/L (135-145); Total Protein 7.5 g/dL (6.5-8.0)
[2023-09-29 05:37] VITALS: BP 113/63; PULSE 67; RESP 16; TEMP 36.8; O2SAT 98
--- NOTE | 2023-09-29 06:38 | ED.ABDPAIN ---
HPI - Abdominal Pain General Chief Complaint: Abdominal Pain Stated Complaint: stomach pain Time Seen by Provider: 09/29/23 05:45 Source: patient Mode of arrival: ambulatory Limitations: language barrier (Patient has deaf mutism-uses ALS sign language) History of Present Illness ED Provider: Dr. Kalyan Bryant HPI narrative: 38-year-old male with a history of cellulitis, atrial fibrillation, psychiatric illness, mutism who presents emergency department who presents emergency department for evaluation of abdominal pain. The patient states that he has a stomach cramping sensation which she describes as a sharp knife-like pain located in his lower abdomen. He states that it started around 09:00 and got progressively worse to the point where at [facility] he could not stand the pain so he came to the hospital to be seen. He states he feels lightheaded and dizzy. He denied fever, chills, vomiting. He states he does have nausea. He denied change in his bowel movements. Patient was last seen in the emergency department on 08/18/2023 for erratic behavior-the patient was banging he has had on stark Related Data Home Medications ?Medication ?Instructions ?Recorded ?Confirmed hydroxyzine HCl 25 mg tablet 25 mg PO DAILY 08/18/23 08/18/23 quetiapine 25 mg tablet 25 mg PO BEDTIME 08/18/23 08/18/23 Previous Rx's ?Medication ?Instructions ?Recorded carvedilol 3.125 mg tablet 3.125 mg PO BID 30 days #60 tabs 04/28/20 Allergies Allergy/AdvReac Type Severity Reaction Status Date / Time bee pollen [bee stings] Allergy Anaphylaxis Verified 09/29/23 02:53 wasps Allergy Anaphylaxis Uncoded 09/29/23 02:53 Review of Systems Review of Systems Yes all other systems are reviewed and are negative PMFSH Past Medical History Medical History Deaf-mutism Fall Cellulitis Hearing loss Afib No known health problems Surgical History Hx of appendectomy Social History Social History Unable to assess alcohol history related to: Refusing to respond Alcohol intake: current Alcohol intake frequency: a few times a month Advance Directives: No Advance Directives Information Provided: No Physical Exam ED Vital Signs: Vital Signs - 24 hr 09/29/23 02:53 09/29/23 05:37 Temperature 98.2 F 98.3 F Pulse Rate 87 67 Respiratory Rate 16 16 Blood Pressure 135/95 H 113/63 Pulse Oximetry 97 98 Oxygen Delivery Method Room Air Room Air BMI result Body Mass Index 34.0 Vital signs revealed an elevated blood pressure 135/95 Exam: General: Awake, , alert, disheveled, pleasant, cooperative, does not appear to be in distress Head: Normocephalic, atraumatic EENT: PERRL, Lids normal, sclera normal, conjunctiva normal, nose normal , ears normal, throat without erythema or exudates Neck: Supple, no adenopathy Lung: breath sounds symmetric, no wheezing, rales or rhonchi Chest: symmetric movement, nontender Heart: regular rate and rhythm, normal S1, S2 no murmurs or rubs Abdomen: soft, moderate left lower quadrant tenderness, mild to moderate right lower quadrant tenderness, mild diffuse tenderness Back: no vertebral tenderness, no CVAT Extremities: no deformities, moves all extremities symmetrically Medical Decision Making Medical Decision Making MDM Narrative: 38-year-old male with a history of cellulitis, atrial fibrillation, psychiatric illness, mutism who presents emergency department who presents emergency department for evaluation of abdominal pain which started at 21:00 hours and became worse this morning at 02:00 hours. The patient describes the pain is a constant, stabbing/cramping like sensation located throughout his abdomen. Associated nausea with no other concerning symptoms. Vital signs were normal. Physical examination did reveal mild diffuse abdominal tenderness with increased tenderness palpation of the left lower right lower quadrant with left being greater than right. Differential diagnosis: ?Includes but is not limited to pancreatitis, diverticulitis, appendicitis, gastritis, nonspecific abdominal pain, anemia, electrolyte abnormalities Following evaluation was ordered: CBC, CMP, lipase, CT scan abdomen pelvis with IV contrast Patient was initially treated with the following: IV insert, cardiac monitoring, O2 saturation monitoring, morphine 4 mg IV, Zofran 4 mg IV, normal saline x1 Course: 06:52 My interpretation patient's laboratory evaluation is as follows: CBC was normal. CMP was normal. Lipase was normal Given the patient's lower abdominal tenderness, I did order CT scan of the abdomen pelvis to further evaluate is pain. At the end of my shift, the CT scan of the abdomen pelvis is pending and the patient's care was turned over to my colleague, Dr. Reece. Lab Data 09/29/23 03:33 09/29/23 03:33 Labs: Lab Results 09/29/23 Range/Units 03:33 WBC 9.1 (4.8-10.8) X10*3/uL RBC 4.45 L (4.60-5.80) X10*6/uL Hgb 13.4 L (14.0-18.0) g/dl Hct 38.4 L (42.0-52.0) % MCV 86.3 (80.0-98.0) fL MCH 30.1 (27.0-33.0) pg MCHC 34.9 (31.0-36.0) g/dl RDW 13.3 (11.0-16.0) % Plt Count 314 (160-400) X10*3/uL MPV 8.8 L (9.4-12.4) fL Immature Gran % (Auto) 0.3 (0.0-0.4) % Neut % (Auto) 74.2 H (45-73) % Lymph % (Auto) 16.3 L (20-40) % [place] % (Auto) 8.4 (2-11) % Eos % (Auto) 0.3 (0-4) % Baso % (Auto) 0.5 (0-2) % Lymph # (Auto) 1.5 (1.2-4.9) X10*3/uL [place] # (Auto) 0.8 (0.1-1.2) X10*3/uL Eos # (Auto) 0.0 (0.0-0.4) X10*3/uL Baso # (Auto) 0.1 (0.0-0.2) X10*3/uL Abs Immat Gran (auto) 0.03 (0.00-0.03) X10*3/uL Absolute Neuts (auto) 6.8 (2.0-8.3) x10*3/uL Absolute Nucleated RBC 0.000 (0.0-0.012) X10*3/uL Nucleated RBC % (auto) 0.0 (0.0-0.2) /100WBC Sodium 142 (135-145) mmol/L Potassium 3.7 D (3.3-5.1) mmol/L Chloride 103 (96-108) mmol/L Carbon Dioxide 32 H (22-29) mmol/L Anion Gap 11 L (12-20) BUN 14 (9-16) mg/dL Creatinine 0.87 (0.5-1.4) mg/dL Estim Creat Clear Calc 134.3 Estimated GFR > 60 Random Glucose 79 (60-115) mg/dL Calcium 10.1 (8.4-10.2) mg/dL Total Bilirubin 0.2 (0.0-1.0) mg/dL AST 18 (5-37) U/L ALT 17 (0-40) U/L Alkaline Phosphatase 67 (39-117) U/L Total Protein 7.5 (6.5-8.0) g/dL Albumin 4.5 (3.5-5.0) g/dL Lipase 17 (8-78) U/L Discharge Plan Discharge Clinical Impression: Abdominal pain Patient Disposition: Still a Patient Prescriptions: No Action carvedilol 3.125 mg tablet 3.125 mg PO BID 30 Days Qty: 60 0RF Rx Instructions: must administer with a meal/food Needs cardiology follow up before more refills given quetiapine 25 mg tablet 25 mg PO BEDTIME hydroxyzine HCl 25 mg tablet 25 mg PO DAILY Print Language: Ghanaian Sign Language
[2023-09-29 06:49] LABS: Lipase 17 U/L (8-78)
[2023-09-29 07:07] VITALS: RESP 16
[2023-09-29] MEDS: iohexoL 350 MG/ML 100 ML INFUS..BTL 85 ML IV (07:07)
[2023-09-29] MEDS: Morphine Sulfate 4 MG/ML CARTRIDGE IVPUSH (07:07)
[2023-09-29] MEDS: 0.9 % Sodium Chloride 1,000 ML 999 ML IV (07:07)
[2023-09-29] MEDS: ondansetron HCL 4 MG/2 ML VIAL IVPUSH (07:08)
[2023-09-29 07:46] VITALS: BP 130/71; PULSE 69; RESP 16; TEMP 36.6; O2SAT 98
[2023-09-29 08:23] VITALS: BP 130/71; PULSE 69; RESP 16; TEMP 36.6; O2SAT 98
== END 2023-09-29 08:25 | disposition home or self-care (01) ==
PROVIDERS: Emergency Provider Emergency Medicine Emergency Medical Services; PCP Family Medicine
DX: R10.30 Lower abdominal pain, unspecified (principal); R42 Dizziness and giddiness; R10.2 Pelvic and perineal pain; Z79.899 Other long term (current) drug therapy
CPT/HCPCS: 36415; 74177; 80053; 83690; 85025; 96374; 96375; 99284; J2270; J2405; Q9967